=== PATIENT | female | born 1990 | race Caucasian/White ===

== ENCOUNTER 2020-10-27 08:40 | Inpatient (IN) ==
[2020-10-27] MEDS ORDERED: OXYTOCIN 30 UNITS/500 ML BAG IV PRN ×3 (09:04→17:02)
[2020-10-27] MEDS ORDERED: PENICILLIN G POTASSIUM 3 MU in DEXTROSE 5% 100 ML IV PRN (09:04)
[2020-10-27] MEDS ORDERED: LACTATED RINGER'S 1,000 ML IV PRN ×2 (09:04→11:56)
[2020-10-27] MEDS ORDERED: PENICILLIN G POTASSIUM 6 MU in DEXTROSE 5% 250 ML IV ONE (09:30)
[2020-10-27 09:31] LABS: Hematocrit (blood only) 34.9 % (37-47); Mean Corpuscular Hemoglobin 31.6 pg (25-34); Mean Corpuscular Hgb Conc 34.4 g/dL (32-36); Mean Corpuscular Volume 91.8 fL (80-100); Mean Platelet Volume 10.7 fL (7.4-10.4); Platelet Count 241 K/uL (130-400); RDW Coefficient of Variation 13.6 % (11.5-14.5); RDW Standard Deviation 44.4 fL (36.4-46.3); White Blood Count 15.12 K/uL (4.8-10.8)
[2020-10-27] MEDS ORDERED: MoRPHine SULFATE PF 1 MG/ML 10 ML AMP/VIAL ONE (09:31)
--- NOTE | 2020-10-27 09:34 | Anesthesiology Consultation ---
Date of Service October 27, 2020 Assessment & Plan (1) Encounter for pre-operative examination: Chart Review Chart Review: Acceptable Risk for Surgery History Allergies Allergy/AdvReac Type Severity Reaction Status Date / Time No Known Allergies Allergy Verified 10/25/20 15:53 Medications Home Medications Medication Instructions Recorded Confirmed Last Taken albuterol sulfate 2 puff INHALATION QID 10/25/20 10/25/20 Unknown duloxetine 40 mg PO DAILY 10/25/20 10/25/20 Unknown montelukast [Singulair] 10 mg PO DAILY 10/25/20 10/25/20 Unknown omeprazole 20 mg PO DAILY 10/25/20 10/25/20 Unknown vit no.[id number]-[id number] 1 tab PO DAILY 10/25/20 10/25/20 Unknown [ Vitamin] propranolol 10 mg PO TID 10/25/20 10/25/20 Unknown Past Medical History Medical History Anxiety Asthma Controlled on meds Depression Supraventricular tachycardia Propanolol as needed; does not regularly need to see cardiology Past Surgical History Surgical History [place] teeth extracted Social History Smoking Status: Never smoker Hx Alcohol Use: No Hx Substance Use: No substance use type: does not use Testing Laboratory Results 10/27/20 09:20
[2020-10-27] MEDS ORDERED: BUPIVACAINE 0.25% 30 ML VIAL ONE (09:43)
[2020-10-27] MEDS ORDERED: ePHEDrine sulfate 50 MG/ML AMP ONE (09:43)
[2020-10-27] MEDS ORDERED: SODIUM CHLORIDE 0.9% INJ 10 ML VIAL ONE (09:43)
[2020-10-27] MEDS ORDERED: fentaNYL citrate 100 MCG/2 ML VIAL ONE (09:43)
[2020-10-27] MEDS ORDERED: fentaNYL 2MCG/ML ROPIVACAINE 1.25MG/ML 100 ML BAG EPI ONE (09:44)
[2020-10-27] MEDS ORDERED: NALOXONE HCL 1 MG in SODIUM CHLORIDE 0.9% 1000ML 1,000 ML IV PRN (10:14)
[2020-10-27] MEDS ORDERED: ePHEDrine sulfate 50 MG/ML AMP IV PRN (10:14)
[2020-10-27] MEDS ORDERED: NALOXONE HCL 0.4 MG/1 ML VIAL/CARP IV PRN (10:14)
[2020-10-27] MEDS ORDERED: fentaNYL 2MCG/ML ROPIVACAINE 1.25MG/ML 100 ML BAG EPI PRN (10:14)
[2020-10-27] MEDS ORDERED: ONDANSETRON INJ 2 MG/ML 2 ML VIAL IV PRN (10:14)
[2020-10-27] MEDS ORDERED: PENICILLIN G POTASSIUM 6 MU in DEXTROSE 5% 250 ML IV STA (11:56)
--- NOTE | 2020-10-27 12:12 | History and Physical Report ---
DATE OF ADMISSION: 10/27/2020 CHIEF COMPLAINT: Contractions, intrauterine at 34 weeks 3 days. HISTORY OF PRESENT ILLNESS: The patient is a 30-year-old 1, para 0. She is in good general health. She is on Cymbalta 40 mg daily for depression and anxiety. She is on Singulair p.r.n. for asthma and she is on Zyrtec. She has been diagnosed with anxiety, mild depression, and asthma. Her due date for this is 12/05/2020. has been complicated by vaginal bleeding for which she was hospitalized at [facility] on 10/01/2020. She was hospitalized there for 10 days. She was bleeding and having contractions at that time. She was given mag sulfate and she was given steroid shots. Presently, her contractions started about 5:00 a.m. She called after they had been present for an hour or 2 and was told to come to the hospital. When she came to the hospital, she was 5 cm, bleeding and cervix was paper thin. ALLERGIES: No known drug allergies. PAST SURGICAL HISTORY: She has had wisdom teeth removed. PAST MEDICAL HISTORY: No history of rheumatic fever, heart disease, heart murmur, diabetes, or tuberculosis. SOCIAL HISTORY: No smoking, no alcohol intake during . She works from home. FAMILY HISTORY: Mom is 51, dad is 51, both in good health. One sister in good health. REVIEW OF SYSTEMS: HEAD: No symptoms of frequent or severe headaches. EYES: No symptoms of blurred vision or double vision. EARS: No symptoms of frequent ear infections or difficulty hearing. PHYSICAL EXAMINATION: GENERAL: A well-developed, well-nourished 30-year-old white female, alert, oriented x3 and cooperative, in no acute distress, appeared her stated age. EYES: Conjunctivae are pink. Sclerae white, no evidence of jaundice. EARS: Had normal light reflex bilaterally. NOSE: Had normal mucosa. Septum is midline. There were no polyps. THROAT: No erythema or evidence of infection. Teeth are in good state of repair. HEAD: Normocephalic, normal distribution of hair. NECK: Supple. Trachea midline. Thyroid is not enlarged. There is no adenopathy appreciated. Both carotids are of good intensity. CHEST: Clear to auscultation and percussion. No wheezes, rales or rhonchi appreciated. ABDOMEN: Consistent with 29 weeks' fetus. PELVIC: Cervix 100% effaced, bloody show, 5+ cm. MUSCULOSKELETAL: Revealed no calf tenderness. IMPRESSIONS OF THIS CASE: History of previous hospitalization during this with steroid shots, active labor at 34 weeks 3 days, premature labor.
[2020-10-27] MEDS ORDERED: Nursing to Pharmacy Communication SCH (12:45)
[2020-10-27] MEDS ORDERED: bisacodyL 10 MG SUPP PR PRN (17:02)
[2020-10-27] MEDS ORDERED: ACETAMINOPHEN 325 MG TAB PO PRN (17:02)
[2020-10-27] MEDS ORDERED: SUPERCREAM 0.870% 15 GM JAR EXT PRN (17:02)
[2020-10-27] MEDS ORDERED: BENZOCAINE 20% AER SPR 82.5 GM CAN EXT PRN (17:02)
[2020-10-27] MEDS ORDERED: HYDROCORTISONE ACETATE 25 MG SUPP PR PRN (17:02)
--- NOTE | 2020-10-27 18:19 | Anesthesia Procedure Note ---
Date of Service October 27, 2020 Anesthesia Post Epidural Note Vital Signs Vital Signs: Temp Pulse Resp BP Pulse Ox 37.6 C H 95 H 22 139/92 99 10/27/20 09:22 10/27/20 18:17 10/27/20 09:22 10/27/20 18:17 10/27/20 17:01 Notes Mental Status: alert / awake / arousable and participated in evaluation Nausea / Vomiting: adequately controlled Pain: adequately controlled Airway Patency, RR, SpO2: stable & adequate BP & HR: stable & adequate Hydration State: stable & adequate Neuraxial Anesthesia: was administered and sensory block is resolving Anesthetic Complications: no major complications apparent Epidural: Removed without complications and With tip intact
[2020-10-27] MEDS: IBUPROFEN 600 MG TAB PO PRN ×2 (19:08→23:32)
--- NOTE | 2020-10-27 20:07 | Delivery Summary ---
DATE OF OPERATION: 10/27/2020 DELIVERY NOTE: 1, para 1. Blood type is AB negative, group B strep positive, was admitted at 34 weeks 3 days gestation in active labor, 4-5 cm dilated with bulging membranes. She had a history of having been hospitalized at [facility] for 10 days starting on 10/01, at which time she was given mag sulfate to stop premature labor. This was associated with bleeding at that time, she was also given steroids. She called, stated she was having contractions since about 5:00 a.m. in the morning and was told to come in for evaluation and at that time was found to be in active labor with some bloody show and bulging membranes. She was immediately started on IV penicillin for strep carrier status. She was given fluids and requested and received epidural. On the epidural, she got good pain relief. She continued to contract spontaneously. We waited until she got her second dose of penicillin in and about a half an hour or so after that we checked her and membranes had ruptured spontaneously. There was a moderate amount of meconium present. She was fully dilated. We then had her push, pushed about an hour, pushed out a live male via direct occiput anterior position over an intact perineum. Infant was suctioned on the perineum through the mouth and the nose. After delivery of the infant, the cord blood was stripped, cord was clamped, cut by the father and the infant was attended to by the cvt tech, Dr. Wylie who was scrubbed and present at the time of delivery. Following this, we had some difficulty getting the placenta out, but eventually with massage and continued traction, it came out intact. Also, we used IV Pitocin. We then inspected the perineum. She had a first-degree laceration. We used 2 heavy Vicryl to repair the vaginal mucosa out to beyond the hymenal ring with a deep suture to approximate the bulbocavernosus muscle, 2 deep sutures to approximate the perineal body, and a running subcuticular suture to approximate the perineal skin edges. Following this, vag exam including rectovaginal examination revealed no hematoma formation or sponges in the vagina. Bleeding was good. Estimated blood loss was 300 mL. I attest to the content of the Intraoperative Record and any orders documented therein. Any exception s are noted below.
[2020-10-27] MEDS: DOCUSATE SODIUM 100 MG CAP PO SCH (20:49)
[2020-10-27] MEDS: MONTELUKAST SODIUM 10 MG TABLET PO SCH (20:49)
[2020-10-27] MEDS: oxyCODONE/ACETAMINOPHEN 5mg/325mg TAB PO PRN (22:08)
[2020-10-27] MEDS: ACETAMINOPHEN W/CODEINE #3 1 TAB PO PRN (23:33)
[2020-10-28] MEDS: IBUPROFEN 600 MG TAB PO PRN ×3 (05:33→18:29)
[2020-10-28] MEDS: ACETAMINOPHEN W/CODEINE #3 1 TAB PO PRN (05:34)
[2020-10-28 06:52] LABS: Hemoglobin 10.1 g/dL (12.0-16.0); Mean Corpuscular Hemoglobin 30.2 pg (25-34); Mean Corpuscular Hgb Conc 32.6 g/dL (32-36); Mean Corpuscular Volume 92.8 fL (80-100); Mean Platelet Volume 10.9 fL (7.4-10.4); Platelet Count 206 K/uL (130-400); RDW Coefficient of Variation 13.9 % (11.5-14.5); RDW Standard Deviation 46.5 fL (36.4-46.3); Red Blood Count 3.34 M/uL (4.2-5.4); White Blood Count 16.39 K/uL (4.8-10.8)
[2020-10-28] MEDS: DOCUSATE SODIUM 100 MG CAP PO SCH ×2 (07:51→20:42)
[2020-10-28] MEDS: PRENATAL VITAMIN 1 TAB PO SCH (07:51)
--- NOTE | 2020-10-28 07:56 | Obstetrical Progress Note ---
Date of Service October 28, 2020 Assessment & Plan Admission and Anticipated Discharge Date Admission Date: October 27, 2020 Subjective Patient is seen and examined. She feels well but complains of vaginal pain Ambulating without dizziness Voiding without difficulty Tolerating regular diet with out N&V Bleeding is minimal No fever/ chills/ CP/ SOB/ N&V/ Leg pain Breast feeding without problems Baby is in nursery, was 34+ weeks Vital Signs Temp Pulse Resp BP 10/28/20 04:50 36.5 C 73 18 136/95 10/27/20 23:25 36.5 C 75 16 134/90 Lab Results 10/27/20 10/27/20 10/27/20 Range/Units 09:01 09:19 09:20 WBC 15.12 H (4.8-10.8) K/uL RBC 3.80 L (4.2-5.4) M/uL Hgb 12.0 (12.0-16.0) g/dL Hct 34.9 L (37-47) % MCV 91.8 (80-100) fL MCH 31.6 (25-34) pg MCHC 34.4 (32-36) g/dL RDW Std Deviation 44.4 (36.4-46.3) fL RDW Coeff of Alisson 13.6 (11.5-14.5) % Plt Count 241 (130-400) K/uL MPV 10.7 H (7.4-10.4) fL SARS-CoV-2, RNA, NAAT NEGATIVE (NEGATIVE) Blood Type AB Negative Antibody Screen NEGATIVE 10/28/20 Range/Units 06:29 WBC 16.39 H (4.8-10.8) K/uL RBC 3.34 L (4.2-5.4) M/uL Hgb 10.1 L (12.0-16.0) g/dL Hct 31.0 L (37-47) % MCV 92.8 (80-100) fL MCH 30.2 (25-34) pg MCHC 32.6 (32-36) g/dL RDW Std Deviation 46.5 H (36.4-46.3) fL RDW Coeff of Alisson 13.9 (11.5-14.5) % Plt Count 206 (130-400) K/uL MPV 10.9 H (7.4-10.4) fL SARS-CoV-2, RNA, NAAT (NEGATIVE) Blood Type Antibody Screen PE: General: Alert, orientedx3, NAD Abd: soft, NT, fundus firm, below Umbilicus Perineum intact, Lochia rubra minimal, digital vaginal exam normal, no hematoma Ext; NT, no edema AP: 30 yo s/p , ppd# 1 VSS Afebrile doing well Normal findings Continue routine care All questions were answered Results & Data ([facility]) Vital Signs (Past 12 Hours) Vital Signs Temp Pulse Resp BP 10/28/20 04:50 36.5 C 73 18 136/95 10/27/20 23:25 36.5 C 75 16 134/90
[2020-10-28] MEDS ORDERED: DIPHTHERIA/TETANUS/PERTUSSIS 0.5 ML SYR/VIAL IM ONE (09:00)
[2020-10-28] MEDS: DULoxetine HCL 20 MG CAP PO SCH (09:20)
[2020-10-28] MEDS: PANTOprazole 40 MG TAB PO SCH (09:20)
[2020-10-28] MEDS: oxyCODONE/ACETAMINOPHEN 5mg/325mg TAB PO PRN ×2 (13:01→18:30)
[2020-10-28] MEDS ORDERED: bisacodyL 5 MG TABEC PO SCH (20:00)
[2020-10-28] MEDS: MONTELUKAST SODIUM 10 MG TABLET PO SCH (20:42)
[2020-10-29 06:54] LABS: Hematocrit (blood only) 32.7 % (37-47); Hemoglobin 10.9 g/dL (12.0-16.0)
[2020-10-29] MEDS: DOCUSATE SODIUM 100 MG CAP PO SCH (08:38)
[2020-10-29] MEDS: IBUPROFEN 600 MG TAB PO PRN ×2 (08:38→18:07)
[2020-10-29] MEDS: PRENATAL VITAMIN 1 TAB PO SCH (08:38)
[2020-10-29] MEDS: DULoxetine HCL 20 MG CAP PO SCH (08:38)
[2020-10-29] MEDS: PANTOprazole 40 MG TAB PO SCH (08:38)
[2020-10-29 10:15] LABS: Basophils # (auto) 0.04 K/uL (0-0.2); Basophils % (auto) 0.3 %; Eosinophils # (auto) 0.19 K/uL (0-0.5); Eosinophils % (auto) 1.5 %; Immature Granulocytes # (auto) 0.11 K/uL (0.00-0.02); Immature Granulocytes % (auto) 0.9 %; Lymphocytes # (auto) 2.96 K/uL (1.2-3.4); Lymphocytes % (auto) 23.2 %; Mean Corpuscular Hemoglobin 31.2 pg (25-34); Mean Platelet Volume 10.9 fL (7.4-10.4); Monocytes # (auto) 0.66 K/uL (0.11-0.59); Monocytes % (auto) 5.2 %; Neutrophils # (auto) 8.78 K/uL (1.4-6.5); Neutrophils % (auto) 68.9 %; Platelet Count 221 K/uL (130-400); RDW Standard Deviation 47.1 fL (36.4-46.3); Red Blood Count 3.43 M/uL (4.2-5.4); White Blood Count 12.74 K/uL (4.8-10.8)
[2020-10-29 10:36] LABS: Mean Corpuscular Hgb Conc 33.3 g/dL (32-36); Mean Corpuscular Volume 92.6 fL (80-100)
--- NOTE | 2020-10-29 10:42 | Obstetrical Progress Note ---
Date of Service October 29, 2020 Assessment & Plan Admission and Anticipated Discharge Date Admission Date: October 27, 2020 Subjective Patient is seen and examined. She feels well, no complaints. Ambulating without dizziness Voiding without difficulty Tolerating regular diet with out N&V Bleeding is minimal No fever/ chills/ CP/ SOB/ N&V/ Leg pain Breast feeding without problems. Baby is doing well. Vital Signs Temp Pulse Resp BP Pulse Ox 10/29/20 07:30 36.7 C 80 16 126/87 10/29/20 05:35 85 143/93 H 10/29/20 00:55 36.8 C 80 18 125/86 98 10/28/20 20:10 36.7 C 80 18 144/90 H 10/28/20 15:15 36.6 C 78 18 141/90 H 100 10/28/20 12:00 36.9 C 86 16 134/90 96 Lab Results 10/27/20 10/27/20 10/27/20 Range/Units 09:01 09:19 09:20 WBC 15.12 H (4.8-10.8) K/uL RBC 3.80 L (4.2-5.4) M/uL Hgb 12.0 (12.0-16.0) g/dL Hct 34.9 L (37-47) % MCV 91.8 (80-100) fL MCH 31.6 (25-34) pg MCHC 34.4 (32-36) g/dL RDW Std Deviation 44.4 (36.4-46.3) fL RDW Coeff of Alisson 13.6 (11.5-14.5) % Plt Count 241 (130-400) K/uL MPV 10.7 H (7.4-10.4) fL Immature Gran % (Auto) % Neut % (Auto) % Lymph % (Auto) % [place] % (Auto) % Eos % (Auto) % Baso % (Auto) % Neut # (Auto) (1.4-6.5) K/uL Lymph # (Auto) (1.2-3.4) K/uL [place] # (Auto) (0.11-0.59) K/uL Eos # (Auto) (0-0.5) K/uL Baso # (Auto) (0-0.2) K/uL Immature Gran # (Auto) (0.00-0.02) K/uL SARS-CoV-2, RNA, NAAT NEGATIVE (NEGATIVE) Blood Type AB Negative Antibody Screen NEGATIVE Screen 10/28/20 10/28/20 10/29/20 Range/Units 06:29 06:29 06:40 WBC 16.39 H 12.74 H (4.8-10.8) K/uL RBC 3.34 L 3.43 L (4.2-5.4) M/uL Hgb 10.1 L 10.9 L (12.0-16.0) g/dL Hct 31.0 L 32.7 L (37-47) % MCV 92.8 92.6 (80-100) fL MCH 30.2 31.2 (25-34) pg MCHC 32.6 33.3 (32-36) g/dL RDW Std Deviation 46.5 H 47.1 H (36.4-46.3) fL RDW Coeff of Alisson 13.9 14.0 (11.5-14.5) % Plt Count 206 221 (130-400) K/uL MPV 10.9 H 10.9 H (7.4-10.4) fL Immature Gran % (Auto) 0.9 % Neut % (Auto) 68.9 % Lymph % (Auto) 23.2 % [place] % (Auto) 5.2 % Eos % (Auto) 1.5 % Baso % (Auto) 0.3 % Neut # (Auto) 8.78 H (1.4-6.5) K/uL Lymph # (Auto) 2.96 (1.2-3.4) K/uL [place] # (Auto) 0.66 H (0.11-0.59) K/uL Eos # (Auto) 0.19 (0-0.5) K/uL Baso # (Auto) 0.04 (0-0.2) K/uL Immature Gran # (Auto) 0.11 H (0.00-0.02) K/uL SARS-CoV-2, RNA, NAAT (NEGATIVE) Blood Type Cancelled Antibody Screen Cancelled Screen Cancelled PE: General: Alert, orientedx3, NAD Abd: soft, NT, fundus firm, below Umbilicus Perineum intact, Lochia rubra minimal Ext; NT, no edema AP: 30 yo s/p , ppd# 2 VSS Afebrile doing well Continue routine care All questions were answered D/C nesting Discussed when to call Results & Data ([facility]) Vital Signs (Past 12 Hours) Vital Signs Temp Pulse Resp BP Pulse Ox 10/29/20 07:30 36.7 C 80 16 126/87 10/29/20 05:35 85 143/93 H 10/29/20 00:55 36.8 C 80 18 125/86 98
== END 2020-10-29 18:33 | disposition home or self-care (01) | DRG 807 ==
LOC: OPB 08:40 → 4S1 08:42 → 4S2 19:30

== ENCOUNTER 2022-08-26 01:47 | Inpatient (IN) ==
[2022-08-26] MEDS ORDERED: LACTATED RINGER'S 1,000 ML IV PRN (02:15)
[2022-08-26] MEDS ORDERED: PENICILLIN G POTASSIUM 6 MU in DEXTROSE 5% 250 ML IV STA (02:15)
[2022-08-26] MEDS ORDERED: LIDOCAINE 1% LOCAL 20 ML VIAL INFIL PRN (02:15)
[2022-08-26] MEDS ORDERED: ePHEDrine sulfate 50 MG/ML AMP ONE (02:34)
[2022-08-26] MEDS ORDERED: fentaNYL 2MCG/ML ROPIVACAINE 1.25MG/ML 100 ML BAG EPI ONE (02:35)
[2022-08-26] MEDS ORDERED: LIDOCAINE 2%/EPINEPHRINE 1:200,000 20 ML SDV ONE (02:35)
[2022-08-26] MEDS ORDERED: fentaNYL citrate 100 MCG/2 ML VIAL ONE (02:35)
[2022-08-26] MEDS ORDERED: SODIUM CHLORIDE 0.9% INJ 10 ML VIAL ONE (02:35)
[2022-08-26] MEDS ORDERED: BUPIVACAINE 0.25% 30 ML VIAL ONE (02:35)
--- NOTE | 2022-08-26 02:50 | History & Physical Report ---
Date of Service August 26, 2022 Assessment & Plan (1) Active labor at term: Admission and Anticipated Discharge Date Admission Date: August 26, 2022 History of Present Illness Chief Complaint: onset of labor at term Primary Care Provider: Omid Malone MD 32 F P1001 at 39 weeks presents in active labor. GBS is positive. Covid is pending. Allergies Allergy/AdvReac Type Severity Reaction Status Date / Time No Known Allergies Allergy Verified 08/26/22 02:05 Home Medications Medication Instructions Recorded Confirmed Type albuterol sulfate 90 mcg/actuation 2 puff inhalation QID PRN Wheezing 10/27/20 08/26/22 History aerosol inhaler doxylamine succinate 25 mg tablet 25 mg PO HS PRN Sleep 10/27/20 08/26/22 History (Unisom (doxylamine)) duloxetine 20 mg capsule,delayed 60 mg PO DAILY 10/27/20 08/26/22 History release (Cymbalta) omeprazole 20 mg capsule,delayed 20 mg PO DAILY 10/27/20 08/26/22 History release prenat.vits,matias,qxu-vxic-[id number] 1 tab PO DAILY 10/27/20 08/26/22 History metoprolol succinate 25 mg 25 mg PO DAILY 08/23/22 08/26/22 History tablet,extended release 24 hr Patient History Medical History Anxiety Asthma Controlled on meds Depression Supraventricular tachycardia Propanolol as needed; does not regularly need to see cardiology Surgical History [place] teeth extracted Social History Smoking Status: Never smoker Second Hand Exposure: No; Hx Alcohol Use: No Hx Substance Use: No Preferred Language: Brazilian Communication Ability: Effective Windows Deployment Technician Required: No Beliefs That Will Affect Care: None marital status: Current Living Situation: Spouse and Family Current Living Situation Comment: and 1.5yo son Other Information That Helps Us Care for You: No Feels Safe at Home: Yes Safety Concerns: Feels Safe At This Time Assistive Devices: None OB History x1 OPERATIONS LEAD History neg Review of Systems All systems reviewed & are unremarkable except as noted in HPI & below Physical Exam Constitutional: WD/WN, vitals as above Eyes: PERRL, conjunctivae normal, anicteric sclerae Respiratory: normal respiratory effort, lungs clear to auscultation Cardiovascular: RRR, no murmur, no edema Gastrointestinal (Abdomen): normal bowel sounds, soft, nontender, no hepatosplenomegaly Musculoskeletal: Extremities: extremities normal to inspection Skin: no rashes, warm and dry Neurologic: patellar DTR's 2+ bilat, sensation intact Psychiatric: A+Ox3, euthymic affect Genitourinary: no vaginal lesions, no adnexal mass OB Exam Abdomen: + fundal height and + vertex Manual OB Exam: + cervical dilation 6 cm, + cer vical effacement 90% and + station -1 OB Exam Monitor Tracing: + external FHT monitor used, + external uterine monitor used, + category I and + normal FHT variability Results & Data ([facility]) Vital Signs (Past 12 Hours) Vital Signs Temp Pulse Resp BP 08/26/22 02:32 36.8 C 76 18 112/78 Monitoring External Monitor Cat 1
[2022-08-26 03:05] LABS: Hematocrit (blood only) 34.4 % (34.1-44.9); Hemoglobin 11.5 g/dl (12.0-16.0); Mean Corpuscular Hemoglobin 31.3 pg (25.0-34.0); Mean Corpuscular Hgb Conc 33.4 g/dL (32.0-36.0); Mean Corpuscular Volume 93.5 fL (80.0-100.0); Platelet Count 227 K/uL (130-400); RDW Standard Deviation 43.9 fL (36.4-46.3); Red Blood Count 3.68 M/uL (3.93-5.22); White Blood Count 11.56 K/ul (4.8-10.8)
[2022-08-26] MEDS ORDERED: NALOXONE HCL 1 MG in SODIUM CHLORIDE 0.9% 1000ML 1,000 ML IV PRN (03:12)
[2022-08-26] MEDS ORDERED: fentaNYL 2MCG/ML ROPIVACAINE 1.25MG/ML 100 ML BAG EPI PRN (03:12)
[2022-08-26] MEDS ORDERED: ePHEDrine sulfate 50 MG/ML AMP IV PRN (03:12)
[2022-08-26] MEDS ORDERED: NALBUPHINE HCL INJ 10 MG/ML AMP IV PRN (03:12)
[2022-08-26] MEDS ORDERED: diphenhydrAMINE 50 MG/ML VIAL IV PRN (03:12)
[2022-08-26] MEDS ORDERED: NALOXONE HCL 0.4 MG/1 ML VIAL/CARP IV PRN (03:12)
--- NOTE | 2022-08-26 03:12 | Anesthesiology Consultation ---
Date of Service August 26, 2022 Assessment & Plan (1) Encounter for pre-operative examination: Chart Review Chart Review: Patient NOT seen in Pre Admission Testing and Acceptable Risk for Labor Epidural Consults Requested none History Height/Weight Height: 5 ft 5 in Weight: 83.007 kg Allergies Allergy/AdvReac Type Severity Reaction Status Date / Time No Known Allergies Allergy Verified 08/26/22 02:05 Medications Home Medications Medication Instructions Recorded Confirmed Last Taken albuterol sulfate 90 mcg/actuation 2 puff inhalation QID PRN Wheezing 10/27/20 08/26/22 10/26/20 21:00 aerosol inhaler doxylamine succinate 25 mg tablet 25 mg PO HS PRN Sleep 10/27/20 08/26/22 08/26/22 (Unisom (doxylamine)) duloxetine 20 mg capsule,delayed 60 mg PO DAILY 10/27/20 08/26/22 08/25/22 release (Cymbalta) omeprazole 20 mg capsule,delayed 20 mg PO DAILY 10/27/20 08/26/22 08/25/22 release prenat.vits,matias,aip-hcee-cjqlc 1 tab PO DAILY 10/27/20 08/26/22 08/25/22 metoprolol succinate 25 mg 25 mg PO DAILY 08/23/22 08/26/22 08/25/22 tablet,extended release 24 hr Active Medications Generic Name Dose Route Start Last Admin Trade Name Freq PRN Reason Stop Dose Admin Lactated Ringer's 1,000 mls @ 125 mls/hr 08/26/22 02:15 08/26/22 02:32 Lr IV 08/28/22 02:14 999 mls/hr .Q8H PRN Administration L&D Protocol Protocol Penicillin G Potassium 6 mu/ 262 mls @ 262 mls/hr 08/26/22 02:15 08/26/22 02:37 Dextrose IV 08/26/22 03:14 262 mls/hr NOW STA Administration Past Medical History Medical History Anxiety Asthma Controlled on meds Depression Supraventricular tachycardia Propanolol as needed; does not regularly need to see cardiology Past Surgical History Surgical History [place] teeth extracted Social History Smoking Status: Never smoker Hx Alcohol Use: No Hx Substance Use: No substance use type: does not use Physical Exam Vital Signs Last Vital Signs Temp 98.2 F 08/26/22 02:32 Pulse 76 08/26/22 03:09 Resp 18 08/26/22 02:32 BP 112/78 08/26/22 02:32 Pulse Ox 99 08/26/22 03:09 Testing Laboratory Results 08/26/22 02:50
[2022-08-26] MEDS ORDERED: NURSING L&D Epidural Breakthrough Pain Update ONE (04:16)
[2022-08-26] MEDS: OXYTOCIN 30 UNITS/500 ML BAG IV PRN ×2 (05:11→05:59)
[2022-08-26] MEDS ORDERED: PENICILLIN G POTASSIUM 3 MU in DEXTROSE 5% 100 ML IV PRN (05:15)
[2022-08-26] MEDS ORDERED: bisacodyL 10 MG SUPP PR PRN (05:28)
[2022-08-26] MEDS ORDERED: OXYTOCIN 30 UNITS/500 ML BAG IV PRN (05:28)
[2022-08-26] MEDS ORDERED: HYDROCORTISONE ACETATE 25 MG SUPP PR PRN (05:28)
[2022-08-26] MEDS ORDERED: ALBUTEROL HFA 8 GM INHALER INH PRN (05:28)
[2022-08-26] MEDS ORDERED: DIPHTHERIA/TETANUS/PERTUSSIS 0.5 ML SYR/VIAL IM ONE (05:28)
[2022-08-26] MEDS ORDERED: BENZOCAINE 20% AER SPR 82.5 GM CAN EXT PRN (05:28)
[2022-08-26] MEDS ORDERED: ACETAMINOPHEN 325 MG TAB PO PRN (05:28)
--- NOTE | 2022-08-26 05:32 | Delivery Summary ---
Vaginal Delivery Summary Date of Service August 26, 2022 Vaginal Delivery Summary 32 F P0101 at 39.4 with live female MICHELLE over intact perineum with delayed cord clamping and Apgars 7/7 weight pending. Cord blood obtained followed by spontaneous delivery of intact placenta. First degree tear repaired with 3/0Vicryl suture. EBL 200 ml. Final sponge, needle and instrument count are correct. Mom and baby stable.
--- NOTE | 2022-08-26 07:09 | Anesthesia Procedure Note ---
Date of Service August 26, 2022 Anesthesia Post Epidural Note Vital Signs Vital Signs: Temp Pulse Resp BP Pulse Ox 36.4 C L 86 18 110/66 96 08/26/22 03:37 08/26/22 07:05 08/26/22 06:50 08/26/22 07:05 08/26/22 05:19 Pain Intensity Bilateral Lower Abdomen: Pain Intensity: 10 Notes Mental Status: alert / awake / arousable and participated in evaluation Patient Amnestic to Procedure: No Nausea / Vomiting: adequately controlled Pain: adequately controlled Airway Patency, RR, SpO2: stable & adequate BP & HR: stable & adequate Hydration State: stable & adequate Neuraxial Anesthesia: was administered and sensory block is resolving Anesthetic Complications: no major complications apparent and Pt Satisfied with anesthetic care Epidural: Removed without complications and With tip intact
[2022-08-26] MEDS: IBUPROFEN 600 MG TAB PO PRN ×2 (07:45→14:01)
[2022-08-26] MEDS: FERROUS SULFATE 325 MG TAB PO SCH (07:45)
[2022-08-26] MEDS: DOCUSATE SODIUM 100 MG CAP PO SCH ×2 (07:45→20:44)
[2022-08-26] MEDS: PRENATAL VITAMIN 1 TAB PO SCH (07:45)
[2022-08-26] MEDS ORDERED: NON-FORMULARY MEDICATION (Prenat.Vits,Cal,Min-Iron-Folic Tablet) PO SCH (09:00)
[2022-08-26] MEDS: METOPROLOL SUCC 25MG EXT REL TAB PO SCH (14:16)
[2022-08-26] MEDS: DULoxetine HCL 60 MG CAP PO SCH (14:16)
[2022-08-26] MEDS: PANTOprazole 40 MG TAB PO SCH (14:16)
[2022-08-27] MEDS: IBUPROFEN 600 MG TAB PO PRN ×2 (02:42→07:23)
[2022-08-27 07:06] LABS: Hematocrit (blood only) 28.8 % (34.1-44.9); Hemoglobin 9.7 g/dl (12.0-16.0); Mean Corpuscular Hemoglobin 31.9 pg (25.0-34.0); Mean Corpuscular Hgb Conc 33.7 g/dL (32.0-36.0); Mean Corpuscular Volume 94.7 fL (80.0-100.0); Mean Platelet Volume 10.5 fL (9.4-12.3); Platelet Count 198 K/uL (130-400); RDW Coefficient of Variation 13.1 % (11.5-14.5); RDW Standard Deviation 44.8 fL (36.4-46.3); Red Blood Count 3.04 M/uL (3.93-5.22); White Blood Count 13.47 K/ul (4.8-10.8)
[2022-08-27] MEDS: FERROUS SULFATE 325 MG TAB PO SCH (07:23)
[2022-08-27] MEDS: PRENATAL VITAMIN 1 TAB PO SCH (07:23)
[2022-08-27] MEDS: DOCUSATE SODIUM 100 MG CAP PO SCH (07:23)
[2022-08-27] MEDS: DULoxetine HCL 60 MG CAP PO SCH (07:49)
[2022-08-27] MEDS: METOPROLOL SUCC 25MG EXT REL TAB PO SCH (10:00)
[2022-08-27] MEDS: PANTOprazole 40 MG TAB PO SCH (10:00)
--- NOTE | 2022-08-27 10:44 | Obstetrical Progress Note ---
Date of Service August 27, 2022 Subjective Ambulation: ambulating normally Voiding: no voiding problems Passing Gas:: Yes Diet Tolerance:: regular diet Lochia:: Small Feeding Type:: breast feeding Current Pain Level(1-10): 0 doing well. wants to go home Physical Exam Constitutional WD/WN, vitals as above Gastrointestinal (Abdomen) Inspection/Auscultation: abdomen normal to inspection abdomen soft and non-tender. fundus firm below U Musculoskeletal Extremities: extremities normal to inspection Skin no rashes, warm and dry Neurologic patellar DTR's 2+ bilat, sensation intact Psychiatric A+Ox3, euthymic affect Results & Data ([facility]) Vital Signs (Past 12 Hours) Vital Signs Temp Pulse Pulse Resp BP BP Pulse Ox 08/27/22 07:20 36.8 C 80 18 131/82 08/27/22 03:00 36.9 C 78 16 117/71 97 08/26/22 23:30 36.9 C 87 18 118/80 94 O2 Del Method 08/27/22 07:20 Room Air 08/27/22 03:00 Room Air 08/26/22 23:30 Room Air Laboratory Results Laboratory Results - last 72 hr 08/26/22 08/26/22 08/27/22 02:15 02:50 06:53 WBC 11.56 H 13.47 H RBC 3.68 L 3.04 L Hgb 11.5 L 9.7 L Hct 34.4 28.8 L MCV 93.5 94.7 MCH 31.3 31.9 MCHC 33.4 33.7 RDW Std Deviation 43.9 44.8 RDW Coeff of Alisson 13.0 13.1 Plt Count 227 198 MPV 11.0 10.5 SARS-CoV-2, RNA, NAAT NEGATIVE
[2022-08-27] MEDS ORDERED: MEASLES, MUMPS & RUBELLA VIRUS VIAL SQ ONE (11:12)
[2022-08-27] MEDS ORDERED: bisacodyL 5 MG TABEC PO SCH (20:00)
== END 2022-08-27 12:32 | disposition home or self-care (01) | DRG 807 ==
LOC: OPB 01:47 → 4S1 02:00 → 4E1 08:45
DX: O99.52 Diseases of the respiratory system complicating childbirth; Z79.899 Other long term (current) drug therapy; O99.344 Other mental disorders complicating childbirth; O70.0 First degree perineal laceration during delivery; F41.9 Anxiety disorder, unspecified; Z3A.39 39 weeks gestation of pregnancy; O99.824 Streptococcus B carrier state complicating childbirth; J45.909 Unspecified asthma, uncomplicated; F32.A Depression, unspecified; Z37.0 Single live birth

== ENCOUNTER 2025-03-22 02:53 | Inpatient (IN) ==
[2025-03-22] MEDS ORDERED: LIDOCAINE 1% LOCAL 20 ML VIAL INFIL PRN (04:40)
[2025-03-22] MEDS ORDERED: OXYTOCIN 30 UNITS/NSS 30 UNITS/500 ML BAG IV PRN ×2 (04:40→09:34)
[2025-03-22] MEDS: LACTATED RINGER'S 1,000 ML IV PRN (04:58)
[2025-03-22 05:05] LABS: Hematocrit (blood only) 36.4 % (37.0-47.0); Hemoglobin 12.3 g/dl (12.0-16.0); Mean Corpuscular Hemoglobin 30.3 pg (25.0-34.0); Mean Corpuscular Volume 89.7 fL (80.0-100.0); Platelet Count 216 K/uL (130-400); RDW Standard Deviation 42.1 fL (36.4-46.3); Red Blood Count 4.06 M/uL (4.20-5.40); White Blood Count 10.07 K/ul (4.8-10.8)
[2025-03-22] MEDS ORDERED: LIDOCAINE 2% MPF LOCAL 5 ML VIAL EPI PRN (05:39)
[2025-03-22] MEDS ORDERED: NALOXONE HCL 1 MG in SODIUM CHLORIDE 0.9% 1,000 ML IV PRN (05:39)
[2025-03-22] MEDS ORDERED: diphenhydrAMINE 50 MG/ML VIAL IV PRN (05:39)
[2025-03-22] MEDS ORDERED: NALBUPHINE HCL INJ 10 MG/ML AMP IV PRN (05:39)
[2025-03-22] MEDS ORDERED: BUPIVACAINE 0.25% PF 30 ML VIAL EPI PRN (05:39)
[2025-03-22] MEDS ORDERED: fentANYL 2 MCG/ML BUPIVacaine 0.125%-NSS 100ML BAG EPI PRN (05:39)
[2025-03-22] MEDS ORDERED: SODIUM CHLORIDE 0.9% PF INJ 10 ML VIAL EPI PRN (05:39)
[2025-03-22] MEDS ORDERED: ROPIVACAINE 0.5% PF 5 MG/ML 20 ML VIAL EPI PRN (05:39)
[2025-03-22] MEDS ORDERED: NALOXONE HCL 0.4 MG/1 ML VIAL/CARP IV PRN (05:39)
--- NOTE | 2025-03-22 05:43 | Anesthesiology Consultation ---
Date of Service March 22, 2025 Assessment & Plan (1) Encounter for pre-operative examination: Chart Review Chart Review: Patient NOT seen in Pre Admission Testing and Acceptable Risk for Labor Epidural Consults Requested none History Height/Weight Height: 5 ft 5 in Weight: 81.647 kg Allergies Allergy/AdvReac Type Severity Reaction Status Date / Time No Known Allergies Allergy Verified 04/06/24 17:57 Medications Home Medications Medication Instructions Recorded Confirmed Last Taken albuterol sulfate 90 mcg/actuation 2 puff inhalation QID PRN Wheezing 10/27/20 03/22/25 10/26/20 21:00 aerosol inhaler cetirizine 10 mg capsule 10 mg PO DAILY PRN Allergy Symptoms 02/09/24 03/22/25 Unknown vit no.95-ferrous 1 tab PO DAILY 04/06/24 03/22/25 03/21/25 fumarate 28 mg-folic acid 800 mcg tablet () duloxetine 60 mg capsule,delayed 60 mg PO DAILY 03/22/25 03/22/25 03/21/25 release Active Medications Generic Name Dose Route Start Last Admin Trade Name Dungq PRN Reason Stop Dose Admin Lactated Ringer's 1,000 mls @ 125 mls/hr 03/22/25 04:40 03/22/25 04:58 Lr IV 03/24/25 04:39 999 mls/hr .Q8H PRN Administration L&D Protocol Protocol Past Medical History Medical History Encounter for pre-operative examination Depression Anxiety Asthma Controlled on meds Past Surgical History Surgical History [place] teeth extracted Social History Smoking Status: Never smoker Do You Dip or Chew Tobacco: No Hx Alcohol Use: No Hx Substance Use: No substance use type: does not use Physical Exam Vital Signs Last Vital Signs Temp 98.1 F 03/22/25 03:18 Pulse 74 03/22/25 05:38 Resp 18 03/22/25 03:18 BP 122/79 03/22/25 05:38 Pulse Ox 100 03/22/25 05:38 Testing Laboratory Results 03/22/25 04:48
[2025-03-22] MEDS: BUPIVACAINE 0.25% PF 30 ML VIAL ONE (06:00)
[2025-03-22] MEDS: fentANYL 2 MCG/ML BUPIVacaine 0.125%-NSS 100ML BAG ONE (06:01)
--- NOTE | 2025-03-22 06:08 | History & Physical Report ---
Date of Service March 22, 2025 Assessment & Plan (1) Normal labor: Present on Admission?: Yes Plan Admit to L and D Regular diet x 2 then NPO/IV Fluids labs Pitocin to augment labor pain meds including epidural as the pt desires Admission and Anticipated Discharge Date Admission Date: March 22, 2025 History of Present Illness Chief Complaint: normal labor Primary Care Provider: Omid Malone MD pt 34 yr old IUP at 39 weeks 2 days with GIANNA : March 27/2025 came in c/o regular uterine contractions q 5 min. Pt denies leaking of fluid per vagina, vaginal bleeding etc. Reports good movement. Allergies Allergy/AdvReac Type Severity Reaction Status Date / Time No Known Allergies Allergy Verified 04/06/24 17:57 Home Medications Medication Instructions Recorded Confirmed Type albuterol sulfate 90 mcg/actuation 2 puff inhalation QID PRN Wheezing 10/27/20 03/22/25 History aerosol inhaler cetirizine 10 mg capsule 10 mg PO DAILY PRN Allergy Symptoms 02/09/24 03/22/25 History vit no.95-ferrous 1 tab PO DAILY 04/06/24 03/22/25 History fumarate 28 mg-folic acid 800 mcg tablet () duloxetine 60 mg capsule,delayed 60 mg PO DAILY 03/22/25 03/22/25 History release Patient History Medical History Encounter for pre-operative examination Depression Anxiety Asthma Controlled on meds Surgical History [place] teeth extracted Social History Smoking Status: Never smoker Second Hand Exposure: No; Do You Dip or Chew Tobacco: No; Hx Alcohol Use: No Hx Substance Use: No Preferred Language: Mohawk Communication Ability: Effective [employer]er Required: No Beliefs That Will Affect Care: None marital status: Current Living Situation: Spouse and Family Current Living Situation Comment: and 1.5yo son Other Information That Helps Us Care for You: No Feels Safe at Home: Yes Safety Concerns: Feels Safe At This Time Assistive Devices: Glasses OB History X 2 Review of Systems All systems reviewed & are unremarkable except as noted in HPI & below as per Subjective / HPI as per Subjective / HPI as per Subjective / HPI Physical Exam Constitutional: WD/WN, vitals as above Respiratory: normal respiratory effort, lungs clear to auscultation Cardiovascular: RRR, no murmur, no edema Gastrointestinal (Abdomen): normal bowel sounds, soft, nontender, no hepatosplenomegaly Skin: no rashes, warm and dry Psychiatric: A+Ox3, euthymic affect Genitourinary: no vaginal lesions, no adnexal mass OB Exam Abdomen: + vertex Manual OB Exam: + cervical dilation 4 cm, + cervical effacement 80% and + station -2 OB Exam Monitor Tracing: + external FHT monitor used, + external uterine monitor used, + category I and + normal FHT variability Results & Data Vital Signs (Past 12 Hours) Vital Signs Temp Pulse Resp BP Pulse Ox 03/22/25 05:58 77 101/74 99 03/22/25 05:56 75 117/85 03/22/25 05:54 85 121/83 03/22/25 05:53 82 100 03/22/25 05:48 78 100 03/22/25 05:43 90 98 03/22/25 05:38 100 03/22/25 05:38 74 03/22/25 05:38 73 122/79 03/22/25 03:18 36.7 C 81 18 123/77 03/22/25 03:18 36.7 C 81 18 123/77
[2025-03-22] MEDS: OXYTOCIN 30 UNITS/NSS 30 UNITS/500 ML BAG IV SCH (07:37)
[2025-03-22] MEDS: SODIUM CHLORIDE 0.9% PF INJ 10 ML VIAL ONE (08:04)
[2025-03-22] MEDS: LIDOCAINE 2%/EPINEPHRINE 1:200,000 20 ML PF ONE (08:04)
[2025-03-22] MEDS: SODIUM CHLORIDE 0.9% PF INJ 10 ML VIAL EPI STA (08:05)
[2025-03-22] MEDS: BUPIVACAINE 0.25% PF 30 ML VIAL EPI STA (08:05)
[2025-03-22] MEDS: LIDOCAINE 2%/EPINEPHRINE 1:200,000 20 ML PF EPI STA (08:05)
--- NOTE | 2025-03-22 08:44 | Labor Progress Brief Note ---
Date of Service March 22, 2025 Assessment & Plan Admission and Anticipated Discharge Date Admission Date: March 22, 2025 Physical Exam Genitourinary: Manual OB Exam: + cervical dilation 5 cm, + cervical effacement 70%, + station -1 and + amniotic fluid clear OB Exam Monitor Tracing: + external FHT monitor used, + external uterine monitor used, + category I and + normal FHT variability AROM with Amni-hook clear fluid Results & Data Vital Signs (Past 12 Hours) Vital Signs Temp Pulse Resp BP Pulse Ox 03/22/25 08:38 75 99 03/22/25 08:33 81 96 03/22/25 08:30 18 03/22/25 08:30 36.8 C 18 03/22/25 08:28 82 99 03/22/25 08:23 73 98 03/22/25 08:18 100 03/22/25 08:18 72 03/22/25 08:18 70 108/57 L 03/22/25 08:13 76 100 03/22/25 08:08 67 100 03/22/25 08:03 73 102/61 99 03/22/25 07:58 65 100 03/22/25 07:53 78 99 03/22/25 07:48 90 110/64 100 03/22/25 07:43 81 99 03/22/25 07:38 74 100 03/22/25 07:33 75 106/57 L 100 03/22/25 07:28 72 99 03/22/25 07:23 73 100 03/22/25 07:18 100 03/22/25 07:18 77 03/22/25 07:18 74 104/60 03/22/25 07:13 73 100 03/22/25 07:08 70 100 03/22/25 07:03 72 106/60 100 03/22/25 06:58 74 100 03/22/25 06:53 72 100 03/22/25 06:48 98 03/22/25 06:48 86 03/22/25 06:48 72 106/62 03/22/25 06:43 73 100 03/22/25 06:38 70 100 03/22/25 06:33 79 100 03/22/25 06:29 71 111/62 03/22/25 06:28 71 100 03/22/25 06:23 71 107/61 99 03/22/25 06:18 68 105/61 99 03/22/25 06:13 73 100 03/22/25 06:12 73 105/58 L 03/22/25 06:10 69 103/59 L 03/22/25 06:08 100 03/22/25 06:08 77 03/22/25 06:08 71 106/57 L 03/22/25 06:06 76 102/58 L 03/22/25 06:04 72 99/57 L 03/22/25 06:03 72 100 03/22/25 06:02 75 101/59 L 03/22/25 06:00 69 100/61 03/22/25 05:58 77 101/74 99 03/22/25 05:56 75 117/85 03/22/25 05:54 85 121/83 03/22/25 05:53 82 100 03/22/25 05:48 78 100 03/22/25 05:43 90 98 03/22/25 05:38 100 03/22/25 05:38 74 03/22/25 05:38 73 122/79 03/22/25 03:18 36.7 C 81 18 123/77 03/22/25 03:18 36.7 C 81 18 123/77
[2025-03-22] MEDS ORDERED: ALBUTEROL HFA 8 GM INHALER INH PRN (09:34)
[2025-03-22] MEDS ORDERED: HYDROCORTISONE ACETATE 25 MG SUPP PR PRN (09:34)
[2025-03-22] MEDS ORDERED: CETIRIZINE HCL 10 MG TABLET PO PRN (09:36)
--- NOTE | 2025-03-22 09:39 | Delivery Summary ---
Vaginal Delivery Summary Date of Service March 22, 2025 Vaginal Delivery Summary live female MICHELLE over intact perineum with delayed cord clamping and Apgars 7/9 weight pending. Cord blood obtained followed by spontaneous delivery of intact placenta. No tears. QBL 75 ml. Final sponge and instrument count are correct. Mom and baby stable.
--- NOTE | 2025-03-22 10:11 | Anesthesia Procedure Note ---
Date of Service March 22, 2025 Anesthesia Post Epidural Note Vital Signs Vital Signs: Temp Pulse Resp BP Pulse Ox 36.8 C 77 16 120/73 99 03/22/25 09:30 03/22/25 10:03 03/22/25 09:30 03/22/25 10:03 03/22/25 09:18 Notes Mental Status: alert / awake / arousable and participated in evaluation Nausea / Vomiting: adequately controlled Pain: adequately controlled Airway Patency, RR, SpO2: stable & adequate BP & HR: stable & adequate Hydration State: stable & adequate Neuraxial Anesthesia: was administered and sensory block is resolving Anesthetic Complications: no major complications apparent and Pt Satisfied with anesthetic care Epidural: Removed without complications and With tip intact
[2025-03-22] MEDS: IBUPROFEN 600 MG TAB PO PRN (11:06)
[2025-03-22] MEDS: BENZOCAINE 20% SPRY 85 APPLN/85 GM CAN EXT PRN (11:06)
[2025-03-22] MEDS: DIPHTHER/TETAN/PERTUS Vaccine (Tdap, Adol/Adult) 0.5mL IM ONE (11:23)
[2025-03-22 16:23] VITALS: RESP 16
[2025-03-22] MEDS: DOCUSATE SODIUM 100 MG CAP PO SCH (20:30)
[2025-03-22] MEDS: ACETAMINOPHEN 325 MG TAB PO PRN (22:22)
[2025-03-23 06:19] LABS: Hematocrit (blood only) 31.8 % (37.0-47.0); Hemoglobin 10.5 g/dl (12.0-16.0); Mean Corpuscular Hemoglobin 30.6 pg (25.0-34.0); Mean Corpuscular Volume 92.7 fL (80.0-100.0); Platelet Count 181 K/uL (130-400); RDW Standard Deviation 43.9 fL (36.4-46.3); Red Blood Count 3.43 M/uL (4.20-5.40); White Blood Count 11.74 K/ul (4.8-10.8)
[2025-03-23 08:09] VITALS: BP 125/87; TEMP 97.5; O2SAT 100
[2025-03-23] MEDS: PRENATAL VITAMIN 1 TAB PO SCH (08:19)
[2025-03-23] MEDS: FERROUS SULFATE 325 MG TAB PO SCH (08:19)
[2025-03-23] MEDS ORDERED: NON-FORMULARY MEDICATION (Pnv No.95-Ferrous Fumarate-Fa [Prenatal] 28 mg iron- 800 mcg Tab PO SCH (09:00)
--- NOTE | 2025-03-23 09:05 | Obstetrical Progress Note ---
Date of Service March 23, 2025 Assessment & Plan (1) Normal labor: discharged home tonight (2) Active labor at term: Subjective Ambulation: ambulating normally Voiding: no voiding problems Passing Gas:: Yes Diet Tolerance:: regular diet Lochia:: Small Feeding Type:: breast feeding Current Pain Level(1-10): 0 (well) Physical Exam Constitutional WD/WN, vitals as above Gastrointestinal (Abdomen) Inspection/Auscultation: abdomen normal to inspection Musculoskeletal Extremities: extremities normal to inspection Skin no rashes, warm and dry Neurologic patellar DTR's 2+ bilat, sensation intact Psychiatric A+Ox3, euthymic affect Results & Data Vital Signs (Past 12 Hours) Vital Signs Temp Pulse Pulse Resp BP Pulse Ox O2 Del Method 03/23/25 08:07 36.4 C L 76 16 125/87 100 Room Air 03/23/25 05:00 36.5 C 68 16 118/80 99 Room Air 03/22/25 23:55 36.5 C 79 16 106/70 98 Room Air Laboratory Results 03/22/25 03/23/25 04:48 05:51 WBC 10.07 11.74 H RBC 4.06 L 3.43 L Hgb 12.3 10.5 L Hct 36.4 L 31.8 L MCV 89.7 92.7 MCH 30.3 30.6 MCHC 33.8 33.0 RDW Std Deviation 42.1 43.9 RDW Coeff of Alisson 13.0 13.2 Plt Count 216 181 MPV 10.3 10.7 Treponema pallidum Ab Negative
[2025-03-23 09:27] VITALS: PULSE 68
== END 2025-03-23 10:59 | disposition home or self-care (01) | DRG 807 ==
LOC: OPB 02:53 → 4S1 03:11 → 4E2 11:58